=== PATIENT | male | born 2000 | race Hispanic/Latino ===

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

== ENCOUNTER 2021-03-17 15:36 | Emergency (ER) | payer BC, OTHER ==
[~2021-03-17] VITALS: Ht 172.7 cm; Wt 136.1 kg
[~2021-03-17 15:36] MED LIST changes: +AUGMENTIN 500-1 EACH PO; +CORTISPORIN-TC10 M1 OT; +MOTRIN200 MG PO
[2021-03-17] MEDS ORDERED: NAPROSYN500 MG PO (17:24)
[2021-03-17] MEDS ORDERED: CYCLOBENZAPRINE10 MG PO (17:26)
== END 2021-03-17 17:50 | disposition home or self-care (01) ==
LOC: FSED 16:25
DX: R07.89 Other chest pain (principal); S29.012A Strain of muscle and tendon of back wall of thorax, initial encounter; X50.0XXA Overexertion from strenuous movement or load, initial encounter; Y99.0 Civilian activity done for income or pay; E66.01 Morbid (severe) obesity due to excess calories
CPT/HCPCS: 99282